=== PATIENT | male | born 1995 | race Caucasian/White ===

== ENCOUNTER 2017-02-26 10:42 | Observation (INO) | payer OTHER ==
[2017-02-26] MEDS ORDERED: NS 1,000 ML IV ONE (10:53)
[2017-02-26] MEDS ORDERED: HYDROmorphONE/DILAUDID 1 MG/ML SYR IVP ONE (10:53)
[2017-02-26] MEDS ORDERED: ONDANSETRON 4 MG/2 ML VIAL IVP ONE (10:53)
[2017-02-26 11:05] LABS: % IMMATURE GRANULYOCYTES 0.2 % (0.0-1.1); ABSOLUTE IMMATURE GRANULOCYTES 0.02 10^3/uL (0.00-0.10); ADD DIFF? NO; ADD MORPH? NO; ADD SCAN? NO; ATYPICAL LYMPHOCYTE FLAG 10 (0-99); FRAGMENT RBC FLAG 0 (0-99); HEMATOCRIT 43.5 % (40.0-51.0); HEMOGLOBIN 15.4 g/dL (13.7-17.5); LEFT SHIFT FLG 0 (0-99); LIPEMIA HEMOLYSIS FLAG 90 (0-99); MEAN CELL HEMOGLOBIN 29.6 pg (27.9-34.1); MEAN CELL HEMOGLOBIN CONCENTR. 35.4 g/dL (32.4-36.7); MEAN CELL VOLUME 83.5 fL (81.5-99.8); MEAN PLATELET VOLUME 10.8 fL (8.7-11.7); PLATELET CLUMPS FLAG 0 (0-99); PLATELET COUNT 197 10^3/uL (150-400); RED BLOOD CELL COUNT 5.21 10^6/uL (4.40-6.38); RED CELL DISTRIBUTION WIDTH 11.9 % (11.5-15.2)
[2017-02-26] MEDS ORDERED: IOPAMIDOL (ISOVUE-300) 100 ML BTL ONE (11:12)
[2017-02-26 11:17] LABS: ANION GAP 15 mEq/L (8-16); CALCIUM 9.1 mg/dL (8.5-10.4); CARBON DIOXIDE 21 mEq/l (22-31); CHLORIDE 106 mEq/L (97-110); CREATININE 0.9 mg/dL (0.7-1.3); GLOMERULAR FILTRATION RATE > 60; GLUCOSE 97 mg/dL (70-100); POTASSIUM 4.1 mEq/L (3.5-5.2); SODIUM 142 mEq/L (134-144)
--- NOTE | 2017-02-26 11:19 | EDPHY ---
H & P Time Seen by Provider: 02/26/17 10:54 HPI/ROS: HPI Right lower abdominal pain. 22-year-old male by private vehicle with his mother. This patient reports that he woke up last night at 12:30 a.m. with right lower quadrant abdominal pain. He describes this as sharp and cramping. He reports it was persistent throughout the evening and then worsened this morning prior to coming to the emergency department. His last bowel movement was yesterday. He describes this as normal. No bloody or melenic stool. He has not had any diarrhea. He has no prior abdominal surgical history. Last oral intake was last night. No urinary symptoms. He has not vomited. ROS: Constitutional: No fever, no chills. No weakness. Eyes: No discharge. No changes in vision. ENT: No sore throat. No nasal congestion or rhinorrhea. Respiratory: No cough. No shortness of breath. Cardiac: No chest pain, no palpitations. Gastrointestinal: As above, no vomiting, no diarrhea. Genitourinary: No hematuria. No dysuria or increased frequency with urination. Musculoskeletal: No back pain. No neck pain. No myalgias or arthralgias. Skin: No rashes. Neurological: No headache. No focal weakness or altered sensation. Past medical history: Denies any significant past medical history. Social history: Nonsmoker. No alcohol. 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 Physical Exam: General Appearance: Alert, he appears uncomfortable. This patient is responding to questions appropriately and in full sentences. This patient appears well-hydrated and well-nourished. Eyes: Pupils equal and round no pallor or injection. No lid edema, erythema or injection. Respiratory: There are no retractions, lungs are clear to auscultation with good air movement bilaterally. Cardiovascular: Regular rate and rhythm. No murmur. Gastrointestinal: Abdomen is guarded with marked right lower quadrant tenderness on palpation and focal tenderness at McBurney's point, no masses, bowel sounds normal. No Parada sign. Neurological: Motor sensory function is grossly intact. Cranial nerves are normal. Gait is normal. Skin: Warm and dry, no rashes. Musculoskeletal: Neck is supple and nontender. Extremities are symmetrical. All joints range without pain or impingement. Psychiatric: No agitation. No depression. Database: EKG: Imaging: CT scan of abdomen and pelvis with IV contrast: Acute appendicitis, appendix measures 10 mm, significant free fluid, likely ruptured periappendiceal inflammatory changes and appendicolith. Results were discussed with staff radiologist Dr. Osei Miramontes. Procedures: Emergency department course: Vital signs reviewed. IV placed. Patient placed on a monitor. He was initially given 0.5 mg of IV hydromorphone for pain and 4 mg of IV Zofran. He was started on IV normal saline with 1 L to be given over the next hour. He is NPO. I discussed the clinical probability of appendicitis and need for CT scan of his abdomen and pelvis to further evaluate. He consents. 11:55 a.m., discussed case with on-call general surgeon Dr. Sravan Connolly. Plan for admission directly to Dr. Connolly and operative management. Patient given 1 g of IV Invanz in the emergency department. 11:58 a.m., discussed results of CT scan and diagnosis with patient and mother. Discussed need for transfer. All of their questions were answered. Patient transferred in stable condition to [facility]. Differential Diagnosis: The differential diagnosis on this patient includes but is not limited to appendicitis. Testicular torsion, ureterolithiasis, volvulus unlikely. This represents a partial list of diagnoses considered. These considerations are based on history, physical exam, past history, reassessment and diagnostic testing. Smoking Status: Never smoked Constitutional: Initial Vital Signs Temperature (C) 36.9 C 02/26/17 10:50 Heart Rate 43 L 02/26/17 10:50 Respiratory Rate 18 02/26/17 10:50 Blood Pressure 119/75 02/26/17 10:50 O2 Sat (%) 96 02/26/17 10:50 O2 Delivery Mode Room Air Allergies/Adverse Reactions: No Known Allergies Allergy (Unverified 12/03/09 21:57) Home Medications: Medication Instructions Recorded NO HOME MEDS 12/03/09 Medical Decision Making - Diagnostics Imaging Results: Imaging Impressions Abdomen CT 02/26/17 10:53 Impression: 1. Acute likely ruptured appendicitis without evidence of abscess. 2. Likely benign prostatic cyst 3. Additional findings as above. Findings discussed with Dr. Pradeep Dumont, 02/26/2017 at 11:49 a.m. - Data Points Laboratory Results: Laboratory Results 02/26/17 11:00 02/26/17 11:00 02/26/17 02/26/17 11:00 11:00 WBC 9.24 10^3/uL 10^3/uL (3.80-9.50) RBC 5.21 10^6/uL 10^6/uL (4.40-6.38) Hgb 15.4 g/dL g/dL (13.7-17.5) Hct 43.5 % % (40.0-51.0) MCV 83.5 fL fL (81.5-99.8) MCH 29.6 pg pg (27.9-34.1) MCHC 35.4 g/dL g/dL (32.4-36.7) RDW 11.9 % % (11.5-15.2) Plt Count 197 10^3/uL 10^3/uL (150-400) MPV 10.8 fL fL (8.7-11.7) Neut % (Auto) 71.5 % % (39.3-74.2) Lymph % (Auto) 20.9 % % (15.0-45.0) [place] % (Auto) 6.1 % % (4.5-13.0) Eos % (Auto) 1.1 % % (0.6-7.6) Baso % (Auto) 0.2 % L % (0.3-1.7) Nucleat RBC Rel Count 0.0 % % (0.0-0.2) Absolute Neuts (auto) 6.61 10^3/uL H 10^3/uL (1.70-6.50) Absolute Lymphs (auto) 1.93 10^3/uL 10^3/uL (1.00-3.00) Absolute Monos (auto) 0.56 10^3/uL 10^3/uL (0.30-0.80) Absolute Eos (auto) 0.10 10^3/uL 10^3/uL (0.03-0.40) Absolute Basos (auto) 0.02 10^3/uL 10^3/uL (0.02-0.10) Absolute Nucleated RBC 0.00 10^3/uL 10^3/uL (0-0.01) Immature Gran % 0.2 % % (0.0-1.1) Immature Gran # 0.02 10^3/uL 10^3/uL (0.00-0.10) Sodium 142 mEq/L mEq/L (134-144) Potassium 4.1 mEq/L mEq/L (3.5-5.2) Chloride 106 mEq/L mEq/L (97-110) Carbon Dioxide 21 mEq/l L mEq/l (22-31) Anion Gap 15 mEq/L mEq/L (8-16) BUN 12 mg/dL mg/dL (7-23) Creatinine 0.9 mg/dL mg/dL (0.7-1.3) Estimated GFR > 60 Glucose 97 mg/dL mg/dL (70-100) Calcium 9.1 mg/dL mg/dL (8.5-10.4) Medications Given: Discontinued Medications Hydromorphone HCl (Dilaudid) 0.5 mg IVP EDNOW ONE Stop: 02/26/17 10:54 Last Admin: 02/26/17 12:08 Dose: 0.5 mg Sodium Chloride (Ns) 1,000 mls @ 0 mls/hr IV ONCE ONE; Wide Open PRN Reason: Protocol Stop: 02/26/17 10:54 Last Admin: 02/26/17 11:00 Dose: 1,000 mls Ertapenem 1 gm/ Sodium (Chloride) 100 mls @ 200 mls/hr IV EDNOW ONE PRN Reason: Protocol Stop: 02/26/17 12:19 Last Admin: 02/26/17 12:11 Dose: 100 mls Ondansetron HCl (Zofran) 4 mg IVP EDNOW ONE Stop: 02/26/17 10:54 Last Admin: 02/26/17 11:03 Dose: 4 mg Departure - Departure Disposition: [facility] Inpatient Acute Clinical Impression: Lower abdominal pain, Acute appendicitis
[2017-02-26] MEDS ORDERED: ERTAPENEM 1 GM in NS 100 ML IV ONE (11:50)
[2017-02-26] MEDS ORDERED: ONDANSETRON 4 MG/2 ML VIAL IVP PRN (12:08)
[2017-02-26] MEDS ORDERED: HEPARIN 5,000 UNIT/0.5 ML SYR ONE ×2 (13:19→13:20)
[2017-02-26] MEDS ORDERED: ceFAZolin 1 GM/5 ML SYR ONE (13:19)
[2017-02-26] MEDS ORDERED: LR 1,000 ML IV ONE (14:05)
--- NOTE | 2017-02-26 17:18 | GHP ---
[f rep st] [facility] HISTORY AND PHYSICAL DATE OF ADMISSION: 02/26/2017 ADMITTING DIAGNOSES: 1. Mesenteric adenitis. 2. Acute appendicitis. HISTORY OF PRESENT ILLNESS: The patient is a 22-year-old white male who woke up early this morning 30 minutes after midnight. He complained of a gas feeling in his upper abdomen. He tried to move around, it did not seem to help. The pain then moved to the right lower quadrant, he tried ibuprofen, it did not help him, and at 9 a.m. he went to the ER. His last meal was at 8 p.m. last night consistent with spaghetti and meat sauce. He also had a Frosty from [employer]. He slept poorly last night. He has not passed any stool since the onset. There is no history of upper respiratory tract infection, diarrhea, prior abdominal surgery, or prior similar symptoms. He has a paternal aunt who has Crohn disease. There is no history of travel or antibiotic use in the last 6 months. SOCIAL HISTORY: He is a nonsmoker. He drinks minimal alcohol. ALLERGIES: He has no known drug allergies. MEDICATIONS: He does not take medications. 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 He has had wisdom tooth extraction. PAST MEDICAL HISTORY: He has no history of rheumatic fever, tuberculosis, hepatitis, or transfusions. REVIEW OF SYSTEMS: He has a permanent lower retainer. He has no limits on his activities. He does run daily. He has not had any steroids in the last 6 months. He was seen at the [facility] and transferred directly to [facility] at my request. His white blood cell count was 9.2 with 72% neutrophils. His hematocrit was 43. His platelet count was 197. On reviewing his CAT scan, there is prominent mesenteric adenitis, and the appendix has 2 appendicoliths and the appendix has periappendiceal smudging and a thickened wall. PHYSICAL EXAMINATION: GENERAL: He is awake, alert, and in no acute distress. HEENT: The skull is normocephalic and atraumatic. There are no focal lateralizing neurologic findings. There is no cervical, supraclavicular, axillary, or inguinal lymphadenopathy. His thyroid is not enlarged. His back is normal to inspection. LUNGS: Clear to auscultation. CARDIAC: Shows S1, S2 to be normal. ABDOMEN: Mildly distended. There are distinctly hypoactive bowel sounds. Psoas and obturator signs are negative. He is tender with cough just above the pubic bone on the right. Tenderness is 5 on a scale of 1-10. To palpation, the left upper quadrant is 1, the left mid abdomen is 1, the left lower quadrant is 2, epigastrium is 1, periumbilical area is 1, suprapubic area is 2, right upper quadrant is 2, right mid abdomen is 3, right lower quadrant is 4. EXTREMITIES: The lower extremities are unremarkable. IMPRESSION: 1. Mesenteric adenitis. 2. Appendicitis. He does have 2 appendicoliths. PLAN: I will plan to perform a laparoscopic appendectomy. The patient understands the planned procedure and agrees to proceed as outlined. /[id number]/MODL MTDD
[2017-02-26] MEDS ORDERED: MIDAZOLAM 2 MG/2 ML VIAL IVP ONE (20:12)
--- NOTE | 2017-02-26 20:12 | PDANEPAE ---
ANE Past Medical History - Cardiovascular History Hx Hypertension: No Hx Arrhythmias: No Hx Chest Pain: No Hx Coronary Artery / Peripheral Vascular Disease: No Hx CHF / Valvular Disease: No Hx Palpitations: No - Pulmonary History Hx COPD: No Hx Asthma/Reactive Airway Disease: No Hx Recent Upper Respiratory Infection: No Hx Oxygen in Use at Home: No - Neurologic History Hx Cerebrovascular Accident: No Hx Seizures: No Hx Dementia: No - Endocrine History Hx Diabetes: No Hypothyroid: No Hyperthyroid: No - Renal History Hx Renal Disorders: No - Liver History Hx Hepatic Disorders: No - Neurological & Psychiatric Hx Hx Neurological and Psychiatric Disorders: No ANE Patient History - Allergies Allergies/Adverse Reactions: No Known Allergies Allergy (Unverified 12/03/09 21:57) - Home Medications Home Medications: NO HOME MEDS 12/03/09 [Last Taken 02/26/17] - NPO status NPO Since - Liquids (Date): 02/26/17 NPO Since - Liquids (Time): 09:00 NPO Since - Solids (Date): 02/25/17 - Smoking Hx Smoking Status: Never smoked ANE Labs/Vital Signs - Labs Result Diagrams: 02/26/17 11:00 02/26/17 11:00 - Vital Signs Blood Pressure: 101/58 Heart Rate: 47 Respiratory Rate: 16 O2 Sat (%): 95 Height: 177.8 cm Weight: 68.039 kg
[2017-02-26] MEDS ORDERED: PROPOFOL 200 MG/20 ML VIAL ONE (20:23)
[2017-02-26] MEDS ORDERED: fentaNYL 100 MCG/2 ML INJ ONE ×3 (20:23→22:03)
[2017-02-26] MEDS ORDERED: LIDOCAINE 2% 5 ML SDV ONE (20:24)
[2017-02-26] MEDS ORDERED: KETOROLAC 30 MG/1 ML SDV ONE (20:24)
[2017-02-26] MEDS ORDERED: SUGAMMADEX SODIUM 200 MG/2 ML VIAL IVP ONE (20:24)
[2017-02-26] MEDS ORDERED: DEXAMETHASONE 4 MG/ML VIAL ONE ×2 (20:24)
[2017-02-26] MEDS ORDERED: ROCURONIUM 50 MG/5 ML VIAL ONE (20:24)
[2017-02-26] MEDS ORDERED: ONDANSETRON 4 MG/2 ML VIAL ONE (20:24)
[2017-02-26] MEDS ORDERED: MIDAZOLAM 2 MG/2 ML VIAL ONE (20:43)
[2017-02-26] MEDS ORDERED: NALOXONE HCL 0.4 MG/ML INJ IVP PRN (21:42)
[2017-02-26] MEDS ORDERED: D5W LR 500 ML IV PRN (21:42)
[2017-02-26] MEDS ORDERED: ACETAMINOPHEN 500 MG TAB PO PRN (21:42)
[2017-02-26] MEDS ORDERED: HYDROCODONE/APAP 5/325 TAB PO PRN (21:42)
[2017-02-26] MEDS ORDERED: PROMETHAZINE HCL 25 MG/ML INJ IVP PRN (21:42)
[2017-02-26] MEDS ORDERED: ALBUTEROL 3 ML DEYVIAL IH PRN (21:42)
[2017-02-26] MEDS: LR 1,000 ML IV SCH (21:58)
[2017-02-26] MEDS: fentaNYL 100 MCG/2 ML INJ IVP PRN ×2 (22:05→22:12)
--- NOTE | 2017-02-26 22:06 | POSTOPPROG ---
Post Op Note Date of Operation: 02/26/17 Surgeon: Sandip Connolly Anesthesia: GET(General Endotracheal) Pre-op Diagnosis: appendicitis and mesenteric adenitis Post-op Diagnosis: unruptured appendicitis and mesenteric adenitis Indication: appendicitis and mesenteric adenitis Procedure: laparoscopic appendectomy Findings: unruptured appendicitis and mesenteric adenitis Inf/Abcess present in the surg proc area at time of surgery?: No EBL: Minimal Total fluids administered: 900 Complications: none
--- NOTE | 2017-02-26 22:10 | POSTANESTH ---
Post Anesthetic Evaluation Cardiovascular Status: Normal, Stable Respiratory Status: Normal, Stable Level of Consciousness/Mental Status: Can Participate in Eval, Mildly Sleepy, Arousable Pain Control: Inadeq, Add Tx Required Nausea/Vomiting Control: Adequate, Prn Tx Ordered Complications Possibly Related to Anesthesia: None Noted
[2017-02-26] MEDS: HYDROmorphONE/DILAUDID 1 MG/ML SYR IVP PRN (23:43)
[2017-02-27] MEDS: KETOROLAC 15 MG/1 ML SDV IVP SCH ×3 (00:27→06:09)
[2017-02-27] MEDS: ACETAMINOPHEN 500 MG TAB PO SCH ×2 (00:29→05:51)
[2017-02-27] MEDS: HYDROmorphONE/DILAUDID 1 MG/ML SYR IVP PRN ×2 (01:42→06:09)
[2017-02-27] MEDS ORDERED: HYDROmorphONE/DILAUDID 2 MG TAB PO PRN (02:00)
[2017-02-27] MEDS: LR 1,000 ML IV SCH (05:51)
--- NOTE | 2017-02-27 06:45 | GOP ---
[f rep st] OPERATIVE REPORT DATE OF OPERATION: SURGEON: Sandip Connolly MD PREOPERATIVE DIAGNOSIS: Appendicitis with mesenteric adenitis. POSTOPERATIVE DIAGNOSIS: Unruptured appendicitis with mesenteric adenitis. PROCEDURE PERFORMED: Laparoscopic appendectomy. FINDINGS: Unruptured appendicitis and mesenteric adenitis. INDICATIONS: Appendicitis and mesenteric adenitis. DESCRIPTION OF PROCEDURE: The patient was placed on the operating table in supine position. After induction of adequate general endotracheal anesthesia, the abdomen was carefully clipped, prepped, and draped. A surgical time-out was carried out and agreed to by all members of the operative team. A curvilinear incision was planned in the umbilicus. This incision was made sharply and deepened with a combination of a spreading technique and Bovie electrocautery dissection was used to expose the anterior rectus sheath bilaterally. The rectus sheath was elevated between 2 Allis clamps and divided in the midline. A pursestring #0 PDS was placed. The peritoneum was entered. An 11-12 mm Vinh trocar was positioned and intraabdominal insufflation was carried out to 15 mmHg. A 5 mm oblique left lower quadrant and a 5 mm transverse suprapubic incisions were made. The 5 mm ports were placed under direct vision. There was a small amount of translucent green fluid in the pelvis. This was subsequently evacuated. The patient was placed in Trendelenburg, and rotated 5 degrees to the left. The appendix was found draping around the cecum posterolaterally. It was elevated and the mesoappendix was divided down to the appendiceal base on the cecum. A 35 mm vascular stapler was used to transect the appendix with a small cuff of cecum. Appendix was placed in EndoCatch bag and delivered. Copious irrigation was carried out with heparin and Ancef containing irrigant. Small bowel was carefully run for a distance of about 3 feet. Mesenteric adenitis was definitely identified. There was no Meckel diverticulum seen. The pneumoperitoneum was released. Each side of the fascial defect at the infraumbilical site was elevated with an Allis clamp and a simple suture of #0 PDS was placed side to side. The pursestring was tied and then the simple suture was tied. Subcutaneous tissue was well irrigated with heparin and Ancef containing irrigant. Hemostasis was excellent. Inverted simple sutures of #4- 0 Vicryl were placed at all incision sites. Mastisol and Steri-Strips were placed. Band-Aids were positioned. Patient tolerated the procedure well and was transferred to recovery in stable and satisfactory condition. /[id number]/MODL MTDD
[2017-02-27 10:35] VITALS: BP 103/60; PULSE 66; RESP 16; TEMP 97.9; O2SAT 94
== END 2017-02-27 10:22 | disposition home or self-care (01) ==
LOC: CED 10:42 → CEDHOLD 12:09 → F1N 20:19
PROVIDERS: ADMIT Surgery; ATTEND Surgery
PROC: 0DTJ4ZZ Resection of Appendix, Percutaneous Endoscopic Approach (ICD-10-PCS; principal; 2017-02-26 18:15)
DX: K35.80 Unspecified acute appendicitis (principal); I88.0 Nonspecific mesenteric lymphadenitis
CPT/HCPCS: 44970; 74177; 96361; 96365; 96375; 99285; G0378; 80048-PO; 85025-PO; J1100; J1170; J1335; J1885; J2250; J2405; J2704; J3010; Q9967